=== PATIENT | female | born 1960 | race Hispanic/Latino ===

== ENCOUNTER → 2019-04-18 | Outpatient (CLI) | payer BC ==
[~2019-04-18] MED LIST: BENTYL20 MG PO; COLACE100 MG PO; LORZONE750 MG PO; OMEPRAZOLE40 MG PO; PANTOPRAZOLE SO40 MG PO; REGLAN10 MG PO; SINGULAIR10 MG PO; SYMBICORT 16010.2 GM; Z.0.BENICAR HCT 201
--- NOTE | 2019-04-18 13:33 | Diagnostic Imaging Report ---
Pelvic ultrasound. History: Hysterectomy, pelvic pain. Comparison: None available. Discussion: Transabdominal and transvaginal evaluation of the pelvis was performed in the transverse and longitudinal planes. The uterus is absent. The ovaries were not visible. There is no evidence of an adnexal mass. There is no evidence of free fluid. IMPRESSION: No visible abnormality. Signed by: Justus Covarrubias on 04/18/2019 1:30 PM
--- NOTE | 2019-04-30 09:13 | Diagnostic Imaging Report ---
#[id number] - MGSCRBIL #BILATERAL DIGITAL SCREENING MAMMOGRAM WITH CAD: 04/18/2019 CLINICAL: Routine screening. Comparison is made to exams dated: 03/05/2017 mammogram and 11/26/2015 mammogram - [facility]. Current study contains 4 films. The tissue of both breasts is predominantly fatty. Current study was also evaluated with a Computer Aided Detection (CAD) system. No significant masses, calcifications, or other findings are seen in either breast. IMPRESSION: NEGATIVE There is no mammographic evidence of malignancy. A 1 year screening mammogram is recommended. The patient will be notified by letter of the results. MARLENY MALHOTRA M.D. ct/penrad:04/29/2019 14:56:10 Smoking Tobacco Cutter Operator: Nohelia COLLAZO(Maru)(M), [facility] letter sent: Normal Exam Mammogram BI-RADS: 1 Negative
== END ==
LOC: US 11:06
PROVIDERS: ATTEND Obstetrics & Gynecology Obstetrics
DX: Z12.31 Encounter for screening mammogram for malignant neoplasm of breast (principal); R10.2 Pelvic and perineal pain
CPT/HCPCS: 76830; 76856; 77067

== ENCOUNTER → 2021-10-12 | Outpatient (CLI) | payer BC | LOC: MAMMO 12:29 | PROVIDERS: ATTEND Family Medicine | DX: Z12.31 Encounter for screening mammogram for malignant neoplasm of breast (principal); M81.8 Other osteoporosis without current pathological fracture | CPT/HCPCS: 77067; 77080 ==